=== PATIENT | male | born 1950 | race Caucasian/White ===

== ENCOUNTER 2018-03-17 12:53 | Observation (INO) | payer MEDICARE, BC ==
[2018-03-17] MEDS ORDERED: ASPIRIN 81 MG PO STA (13:26)
[2018-03-17] MEDS ORDERED: NITROGLYCERIN OINT 1 INCH/GM PACKET TOPICAL STA (13:26)
--- NOTE | 2018-03-17 13:33 | ED ---
General Adult HPI - General Chief complaint: Chest Pain Stated complaint: chest pain Time Seen by Provider: 03/17/18 13:00 Source: patient, RN notes reviewed Mode of arrival: wheelchair Limitations: no limitations - History of Present Illness Initial comments: This is a 67-year-old male who presents emergency Department complaining of lightheadedness. Patient states she was driving the car became lightheaded and started to become very diaphoretic and then had significant chest pressure. Patient stated it felt like somebody was sitting on his chest. Patient states all the symptoms lasted approximately 20 minutes. Patient states they were severe enough where he had to kidney puller and stop driving. Patient states the pain did not radiate anywhere. Patient also states he was short of breath while this was occurring. Patient states currently he is asymptomatic. Patient does have high blood pressure and high cholesterol but denies any smoking history and denies any past cardiac history. Patient denies feeling sick lately patient denies any recent fever chills or cough. Patient denies any headache patient denies any numbness weakness. Patient denied any abdominal pain. Patient denies any nausea vomiting diarrhea. - Related Data Home Medications Medication Instructions Recorded Confirmed Fenofibrate Nanocrystallized 145 mg PO DAILY 03/17/18 03/17/18 [Tricor] Latanoprost [Xalatan 0.005%] 1 drop RIGHT EYE HS 03/17/18 03/17/18 Lisinopril [Zestril] 40 mg PO DAILY 03/17/18 03/17/18 Simvastatin [Zocor] 20 mg PO HS 03/17/18 03/17/18 Allergies Allergy/AdvReac Type Severity Reaction Status Date / Time No Known Allergies Allergy Verified 03/17/18 13:48 Review of Systems ROS Statement: Those systems with pertinent positive or pertinent negative responses have been documented in the HPI. ROS Other: All systems not noted in ROS Statement are negative. Past Medical History Past Medical History: Hypertension Additional Past Medical History / Comment(s): hx angina History of Any Multi-Drug Resistant Organisms: None Reported Past Surgical History: Orthopedic Surgery Additional Past Surgical History / Comment(s): shoulder, knee Past Psychological History: No Psychological Hx Reported Smoking Status: Former smoker Past Alcohol Use History: None Reported Past Drug Use History: None Reported General Exam - General Exam Comments Initial Comments: GENERAL: Patient is well-developed and well-nourished. Patient is nontoxic and well- hydrated and is in mild distress. ENT: Neck is soft and supple. No significant lymphadenopathy is noted. Oropharynx is clear. Moist mucous membranes. Neck has full range of motion without eliciting any pain. EYES: The sclera were anicteric and conjunctiva were pink and moist. Extraocular movements were intact and pupils were equal round and reactive to light. Eyelids were unremarkable. PULMONARY: Unlabored respirations. Good breath sounds bilaterally. No audible rales rhonchi or wheezing was noted. CARDIOVASCULAR: There is a regular rate and rhythm without any murmurs gallops or rubs. ABDOMEN: Soft and nontender with normal bowel sounds. No palpable organomegaly was noted. There is no palpable pulsatile mass. SKIN: Skin is clear with no lesions or rashes and otherwise unremarkable. NEUROLOGIC: Patient is alert and oriented x3. Cranial nerves II through XII are grossly intact. Motor and sensory are also intact. Normal speech, volume and content. Symmetrical smile. MUSCULOSKELETAL: Normal extremities with adequate strength and full range of motion. No lower extremity swelling or edema. No calf tenderness. LYMPHATICS: No significant lymphadenopathy is noted PSYCHIATRIC: Normal psychiatric evaluation. Normal interpersonal interactions appears functionally intact in deals appropriately with others. No signs of depression. No signs of anxiety. Limitations: no limitations Course Vital Signs 03/17/18 03/17/18 12:58 15:17 Temperature 97.5 F L Pulse Rate 59 L 60 Respiratory 18 18 Rate Blood Pressure 113/73 110/77 O2 Sat by Pulse 99 96 Oximetry Medical Decision Making - Medical Decision Making EKG shows sinus bradycardia 58 bpm NJ interval 246 dresses 90 QT interval 448 QTC is 439. Patient's EKG shows no ST segment elevation or depression or T wave abnormalities are noted. Abdomen Patient's chest x-ray showed no acute abnormality. Patient had classic unstable angina symptoms I started the patient heparin. I spoke with Dr. Cochran he agreed to admit the patient admitted the patient wrote admitting orders. I continued heparin Nitropaste and aspirin on the floor. I consult cardiology. - Lab Data Result diagrams: 03/17/18 13:20 03/17/18 13:20 Lab Results 03/17/18 03/17/18 03/17/18 Range/Units 13:20 13:20 13:20 WBC 7.7 (3.8-10.6) k/uL RBC 5.16 (4.30-5.90) m/uL Hgb 14.8 (13.0-17.5) gm/dL Hct 44.2 (39.0-53.0) % MCV 85.6 (80.0-100.0) fL MCH 28.6 (25.0-35.0) pg MCHC 33.4 (31.0-37.0) g/dL RDW 13.3 (11.5-15.5) % Plt Count 264 (150-450) k/uL Neutrophils % 52 % Lymphocytes % 32 % Monocytes % 7 % Eosinophils % 3 % Basophils % 1 % Neutrophils # 4.0 (1.3-7.7) k/uL Lymphocytes # 2.5 (1.0-4.8) k/uL Monocytes # 0.6 (0-1.0) k/uL Eosinophils # 0.2 (0-0.7) k/uL Basophils # 0.1 (0-0.2) k/uL PT (9.0-12.0) sec INR (<1.2) APTT (22.0-30.0) sec Sodium 139 (137-145) mmol/L Potassium 4.8 (3.5-5.1) mmol/L Chloride 107 (98-107) mmol/L Carbon Dioxide 21 L (22-30) mmol/L Anion Gap 11 mmol/L BUN 22 H (9-20) mg/dL Creatinine 1.04 (0.66-1.25) mg/dL Est GFR (CKD-EPI)AfAm 85 (>60 ml/min/1.73 sqM) Est GFR (CKD-EPI)NonAf 73 (>60 ml/min/1.73 sqM) Glucose 104 H (74-99) mg/dL Calcium 9.6 (8.4-10.2) mg/dL Magnesium 2.3 (1.6-2.3) mg/dL Total Bilirubin 0.7 (0.2-1.3) mg/dL AST 38 (17-59) U/L ALT 36 (21-72) U/L Alkaline Phosphatase 39 (38-126) U/L Total Creatine Kinase 223 H (55-170) U/L CK-MB (CK-2) 3.4 H (0.0-2.4) ng/mL CK-MB (CK-2) Rel Index 1.5 Troponin I <0.012 (0.000-0.034) ng/mL Total Protein 7.2 (6.3-8.2) g/dL Albumin 4.1 (3.5-5.0) g/dL 03/17/18 Range/Units 13:20 WBC (3.8-10.6) k/uL RBC (4.30-5.90) m/uL Hgb (13.0-17.5) gm/dL Hct (39.0-53.0) % MCV (80.0-100.0) fL MCH (25.0-35.0) pg MCHC (31.0-37.0) g/dL RDW (11.5-15.5) % Plt Count (150-450) k/uL Neutrophils % % Lymphocytes % % Monocytes % % Eosinophils % % Basophils % % Neutrophils # (1.3-7.7) k/uL Lymphocytes # (1.0-4.8) k/uL Monocytes # (0-1.0) k/uL Eosinophils # (0-0.7) k/uL Basophils # (0-0.2) k/uL PT 10.7 (9.0-12.0) sec INR 1.1 (<1.2) APTT 24.9 (22.0-30.0) sec Sodium (137-145) mmol/L Potassium (3.5-5.1) mmol/L Chloride (98-107) mmol/L Carbon Dioxide (22-30) mmol/L Anion Gap mmol/L BUN (9-20) mg/dL Creatinine (0.66-1.25) mg/dL Est GFR (CKD-EPI)AfAm (>60 ml/min/1.73 sqM) Est GFR (CKD-EPI)NonAf (>60 ml/min/1.73 sqM) Glucose (74-99) mg/dL Calcium (8.4-10.2) mg/dL Magnesium (1.6-2.3) mg/dL Total Bilirubin (0.2-1.3) mg/dL AST (17-59) U/L ALT (21-72) U/L Alkaline Phosphatase (38-126) U/L Total Creatine Kinase (55-170) U/L CK-MB (CK-2) (0.0-2.4) ng/mL CK-MB (CK-2) Rel Index Troponin I (0.000-0.034) ng/mL Total Protein (6.3-8.2) g/dL Albumin (3.5-5.0) g/dL Critical Care Time Critical Care Time: Yes Total Critical Care Time: 35 Disposition Clinical Impression: Unstable angina pectoris Disposition: ADMITTED IP TO THIS HOSP Referrals: Deandre Galvez DO [Primary Care Provider] - 1-2 days Time of Disposition: 15:25
[2018-03-17 13:50] LABS: Basophils # (A) 0.1 k/uL (0-0.2); Basophils % (A) 1 %; Eosinophils # (A) 0.2 k/uL (0-0.7); Eosinophils % (A) 3 %; HCT 44.2 % (39.0-53.0); HGB 14.8 gm/dL (13.0-17.5); Lymphocytes # (A) 2.5 k/uL (1.0-4.8); Lymphocytes % (A) 32 %; MCH 28.6 pg (25.0-35.0); MCHC 33.4 g/dL (31.0-37.0); MCV 85.6 fL (80.0-100.0); Mean Platelet Volume 6.8; Monocytes # (A) 0.6 k/uL (0-1.0); Monocytes % (A) 7 %; Neutrophils % (A) 52 %; Platelet Count 264 k/uL (150-450); RBC 5.16 m/uL (4.30-5.90); RDW 13.3 % (11.5-15.5); WBC 7.7 k/uL (3.8-10.6)
[2018-03-17 13:59] LABS: Albumin 4.1 g/dL (3.5-5.0); Calcium 9.6 mg/dL (8.4-10.2); Magnesium 2.3 mg/dL (1.6-2.3); Total Bilirubin 0.7 mg/dL (0.2-1.3); Total Protein 7.2 g/dL (6.3-8.2)
--- NOTE | 2018-03-17 13:59 | XR ---
EXAMINATION TYPE: XR chest 2V DATE OF EXAM: 03/17/2018 HISTORY: Chest Pain. REFERENCE: NONE. FINDINGS: The lungs are clear. Pleural space are clear. The heart is not enlarged. IMPRESSION: NO ACTIVE INTRATHORACIC DISEASE.
[2018-03-17 14:05] LABS: INR 1.1 (<1.2); Partial Thromboplastin Time 24.9 sec (22.0-30.0); Potassium 4.8 mmol/L (3.5-5.1); Prothrombin Time 10.7 sec (9.0-12.0)
[2018-03-17 14:16] LABS: Creatine Kinase 223 U/L (55-170)
[2018-03-17 14:27] LABS: Creatine Kinase MB 3.4 ng/mL (0.0-2.4); Troponin I <0.012 ng/mL (0.000-0.034)
[2018-03-17] MEDS ORDERED: NITROGLYCERIN SL TABS 0.4 MG TAB SUBLINGUAL PRN (15:28)
[2018-03-17] MEDS ORDERED: HEPARIN SODIUM,PORCINE 5,000 UNIT/ML 1 ML VIAL IV ONE (15:29)
[2018-03-17] MEDS ORDERED: HEPARIN SOD,PORK IN 0.45% NACL 25,000 UNIT in 0.45% NACL 1 500ML.BAG IV SCH (15:30)
[2018-03-17] MEDS: NITROGLYCERIN OINT 1 INCH/GM PACKET TOPICAL SCH (18:20)
[2018-03-17 19:41] LABS: Creatine Kinase 183 U/L (55-170)
--- NOTE | 2018-03-17 19:41 | P.HPIM ---
History of Present Illness H&P Date: 03/17/18 Chief Complaint: Chest pain Mr. Estrada is a 67-year-old male with a past medical history of hyperlipidemia hypertension and glaucoma coming to the hospital with a chief complaint of substernal chest pain. Patient states while he was driving got this morning he started to have chest pain substernal in nature, radiating to his upper chest and neck associated with diaphoresis. Patient states that he felt like something heavy was sitting on top of his chest. The pain lasted for around 20 minutes that he had to rod puller and coiler and stop driving. Patient was also having mild difficulty in breathing and felt dizzy with the chest pain. Patient denies having any history of smoking or cardiac history. Patient denies having any orthopnea or PND. Patient denies having any fevers chills or rigors. No shortness of breath or cough. No abdominal pain nausea vomiting or diarrhea. No dysuria or hematuria. No loss of consciousness or seizure-like activity. No focal weakness. Patient states that he has family history of angina in his mother. He denies having any smoking history. Patient states that he exercises on a regular basis. Patient had troponins checked that were less than 0.012 and admitted for ACS rule out. Review of Systems REVIEW OF SYSTEMS: CONSTITUTIONAL: No fevers chills or rigors PSYCH: Normal psychiatric exam NEURO:No c/o weakness of the extremties, No facial droop, No speech abnormalities. VASCULAR: Peripheral nervous system within the normal limits no edema HEMATOLOGIC: No history of easy bleeding and bruising . No recent infections . RESPIRATORY: No cough, No SOB, No chest discomfort. IMMUNE: No infections INTEGUMENT: no rashes OPHTHALMOLOGIC: No blurry vision and no eye discharge : No dysuria or hematuria CARDIAC: As per HPI MUSCULOSKELETAL : No Aches or pains in the joints or muscles. GI: No abdominal pain, Nausea or vomiting. No constipation or diarrhea. Past Medical History Past Medical History: Hyperlipidemia, Hypertension Additional Past Medical History / Comment(s): hx angina History of Any Multi-Drug Resistant Organisms: None Reported Past Surgical History: Heart Catheterization, Orthopedic Surgery Additional Past Surgical History / Comment(s): left rotator cuff, knee Past Anesthesia/Blood Transfusion Reactions: No Reported Reaction Past Psychological History: No Psychological Hx Reported Smoking Status: Former smoker Past Alcohol Use History: None Reported Past Drug Use History: None Reported - Past Family History Mother Family Medical History: Congestive Heart Failure (CHF) Additional Family Medical History / Comment(s): angina, 4 uncles to pt on moms side all from heart attacks Medications and Allergies Home Medications Medication Instructions Recorded Confirmed Type Fenofibrate Nanocrystallized 145 mg PO DAILY 03/17/18 03/17/18 History [Tricor] Latanoprost [Xalatan 0.005%] 1 drop BOTH EYES HS 03/17/18 03/17/18 History Lisinopril [Zestril] 40 mg PO DAILY 03/17/18 03/17/18 History Simvastatin [Zocor] 20 mg PO HS 03/17/18 03/17/18 History Allergies Allergy/AdvReac Type Severity Reaction Status Date / Time No Known Allergies Allergy Verified 03/17/18 13:48 Physical Exam Vitals: Vital Signs Temp Pulse Pulse Resp BP BP Pulse Ox 03/17/18 16:14 97.7 F 56 L 16 118/75 95 03/17/18 15:17 60 18 110/77 96 03/17/18 12:58 97.5 F L 59 L 18 113/73 99 Intake and Output 03/17/18 03/17/18 03/17/18 06:59 14:59 22:59 Other: Weight 88.451 kg 92.3 kg GEN. APPEARANCE: alert, in no apparent distress HEAD EXAM: atraumatic, normocephalic, normal inspection EYE EXAM: normal appearance, PERRL, EOMI. Absent: scleral icterus, conjunctival injection, periorbital swelling ENT EXAM: normal exam, mucous membranes moist NECK EXAM: normal inspection. Absent: tenderness, meningismus, full ROM, lymphadenopathy RESPIRATORY EXAM: normal lung sounds bilaterally. Absent: respiratory distress , wheezes, rales, rhonchi, stridor CARDIOVASCULAR EXAM: regular rate, normal rhythm, normal heart sounds. Absent : systolic murmur, diastolic murmur, rubs, gallop, clicks GI/ABDOMINAL EXAM: soft, normal bowel sounds. Absent: distended, tenderness, guarding, rebound, rigid EXTREMITIES EXAM: normal inspection, full ROM, normal capillary refill. Absent : tenderness, pedal edema, joint swelling, calf tenderness NEUROLOGICAL EXAM: alert, oriented X3, no focal neurological deficits PSYCHIATRIC EXAM: normal affect, normal mood SKIN EXAM: warm, dry, intact, normal color. Absent: rash Results CBC & Chem 7: 03/17/18 13:20 03/17/18 13:20 Labs: Abnormal Lab Results - Last 24 Hours (Table) 03/17/18 03/17/18 Range/Units 13:20 13:20 Carbon Dioxide 21 L (22-30) mmol/L BUN 22 H (9-20) mg/dL Glucose 104 H (74-99) mg/dL Total Creatine Kinase 223 H (55-170) U/L CK-MB (CK-2) 3.4 H (0.0-2.4) ng/mL Thrombosis Risk Factor Assmnt - Choose All That Apply Any of the Below Risk Factors Present?: Yes Each Factor Represents 1 point: Obesity (BMI >25) Other Risk Factors: Yes Each Risk Factor Represents 2 Points: Age 61-74 years Thrombosis Risk Factor Assessment Total Risk Factor Score: 3 Thrombosis Risk Factor Assessment Level: Moderate Risk Assessment and Plan Assessment: ASSESSMENT Chest pain Hypertension Hyperlipidemia Glaucoma Obesity with BMI of 30 Plan: Patient is admitted for possible acute coronary syndrome. We will get serial troponins and EKGs. has been started on heparin drip that will be continued. Patient will need stress echo. Cardiology has been consulted. Further recommendations to follow depending on the progress of the patient.
[2018-03-17 19:54] LABS: Creatine Kinase MB 2.9 ng/mL (0.0-2.4)
[2018-03-17 19:56] LABS: Troponin I <0.012 ng/mL (0.000-0.034)
[2018-03-17] MEDS ORDERED: ATORVASTATIN 10 MG TAB PO SCH (21:00)
[2018-03-17] MEDS ORDERED: LATANOPROST 0.005% OPHTH DROPS 2.5 ML BTL BOTH EYES SCH (21:00)
[2018-03-17] MEDS ORDERED: ACETAMINOPHEN TAB 325 MG TAB PO PRN (23:51)
[2018-03-18] MEDS: NITROGLYCERIN OINT 1 INCH/GM PACKET TOPICAL SCH ×2 (00:07→04:59)
[2018-03-18 01:48] LABS: Creatine Kinase 163 U/L (55-170)
[2018-03-18 02:02] LABS: Creatine Kinase MB 2.7 ng/mL (0.0-2.4); Troponin I <0.012 ng/mL (0.000-0.034)
[2018-03-18 02:36] LABS: Cholesterol 134 mg/dL (<200); HDL Cholesterol 51 mg/dL (40-60); LDL Cholesterol,Calculated 65 mg/dL (0-99); Triglycerides 90 mg/dL (<150)
[2018-03-18] MEDS ORDERED: SODIUM CHLORIDE 0.9% 1,000 ML IV SCH (08:15)
--- NOTE | 2018-03-18 08:36 | P.CRDCN ---
<Charles Rojas - Last Filed: 03/18/18 08:35> History of Present Illness History of present illness: Patient interviewed and examined. Episode of dizziness while sitting in the car and was subsequently started experiencing chest discomfort. He's had a similar episode many years back.. Often gets dizzy and lightheaded. He did feel some pounding in the chest. Examination is normal blood pressure is 119/75 mmHg and 87/55 mmHg. Twelve- lead ECG is normal cardiac enzymes are normal History of hypertension and dyslipidemia Plan Tilt table test Exercise stress echo today Evaluation thereafter Past Medical History Past Medical History: Hyperlipidemia, Hypertension Additional Past Medical History / Comment(s): hx angina History of Any Multi-Drug Resistant Organisms: None Reported Past Surgical History: Heart Catheterization, Orthopedic Surgery Additional Past Surgical History / Comment(s): left rotator cuff, knee Past Anesthesia/Blood Transfusion Reactions: No Reported Reaction Past Psychological History: No Psychological Hx Reported Smoking Status: Former smoker Past Alcohol Use History: None Reported Past Drug Use History: None Reported - Past Family History Mother Family Medical History: Congestive Heart Failure (CHF) Additional Family Medical History / Comment(s): angina, 4 uncles to pt on moms side all from heart attacks Medications and Allergies Home Medications Medication Instructions Recorded Confirmed Type Fenofibrate Nanocrystallized 145 mg PO DAILY 03/17/18 03/17/18 History [Tricor] Latanoprost [Xalatan 0.005%] 1 drop BOTH EYES HS 03/17/18 03/17/18 History Lisinopril [Zestril] 40 mg PO DAILY 03/17/18 03/17/18 History Simvastatin [Zocor] 20 mg PO HS 03/17/18 03/17/18 History Allergies Allergy/AdvReac Type Severity Reaction Status Date / Time No Known Allergies Allergy Verified 03/17/18 13:48 Physical Exam Vitals: Vital Signs Temp Pulse Pulse Resp BP BP BP 03/18/18 07:55 63 16 03/18/18 07:15 98.4 F 59 L 18 87/55 03/18/18 04:00 98.2 F 64 16 119/75 03/18/18 00:00 16 03/17/18 23:47 98.7 F 70 16 90/48 03/17/18 20:00 18 03/17/18 19:53 98.9 F 61 18 125/57 03/17/18 16:14 97.7 F 56 L 16 118/75 03/17/18 15:17 60 18 110/77 03/17/18 12:58 97.5 F L 59 L 18 113/73 Pulse Ox 03/18/18 07:55 03/18/18 07:15 96 03/18/18 04:00 96 03/18/18 00:00 03/17/18 23:47 94 L 03/17/18 20:00 03/17/18 19:53 95 03/17/18 16:14 95 03/17/18 15:17 96 03/17/18 12:58 99 Intake and Output 03/17/18 03/18/18 03/18/18 22:59 06:59 14:59 Intake Total 136.863 199.39 Balance 136.863 199.39 Intake: Intake, IV Titration 136.863 199.39 Amount Heparin Sod,Pork in 0.45% 136.863 199.39 NaCl 25,000 unit In 0.45 % NaCl 1 500ml.bag @ 11.3 UNITS/KG/HR 19.98 mls/hr IV .Q24H [facility] Rx#: [id number] Other: # Voids 2 3 Weight 92.3 kg Results 03/17/18 13:20 03/17/18 13:20 Cardiac Enzymes 03/17/18 03/17/18 03/17/18 Range/Units 13:20 13:20 18:54 AST 38 (17-59) U/L CK-MB (CK-2) 3.4 H 2.9 H (0.0-2.4) ng/mL Troponin I <0.012 <0.012 (0.000-0.034) ng/mL 03/18/18 Range/Units 01:07 AST (17-59) U/L CK-MB (CK-2) 2.7 H (0.0-2.4) ng/mL Troponin I <0.012 (0.000-0.034) ng/mL Coagulation 03/17/18 03/17/18 03/18/18 Range/Units 13:20 22:15 05:07 PT 10.7 (9.0-12.0) sec APTT 24.9 38.5 H 45.7 H (22.0-30.0) sec Lipids 03/17/18 Range/Units 13:20 Triglycerides 90 (<150) mg/dL Cholesterol 134 (<200) mg/dL HDL Cholesterol 51 (40-60) mg/dL CBC 03/17/18 Range/Units 13:20 WBC 7.7 (3.8-10.6) k/uL RBC 5.16 (4.30-5.90) m/uL Hgb 14.8 (13.0-17.5) gm/dL Hct 44.2 (39.0-53.0) % Plt Count 264 (150-450) k/uL Comprehensive Metabolic Panel 03/17/18 Range/Units 13:20 Sodium 139 (137-145) mmol/L Potassium 4.8 (3.5-5.1) mmol/L Chloride 107 (98-107) mmol/L Carbon Dioxide 21 L (22-30) mmol/L BUN 22 H (9-20) mg/dL Creatinine 1.04 (0.66-1.25) mg/dL Glucose 104 H (74-99) mg/dL Calcium 9.6 (8.4-10.2) mg/dL AST 38 (17-59) U/L ALT 36 (21-72) U/L Alkaline Phosphatase 39 (38-126) U/L Total Protein 7.2 (6.3-8.2) g/dL Albumin 4.1 (3.5-5.0) g/dL Current Medications Generic Name Dose Route Start Last Admin Trade Name Freq PRN Reason Stop Dose Admin Acetaminophen 650 mg 03/17/18 23:51 Tylenol Tab PO Q4HR PRN Fever and/ or Pain Aspirin 325 mg 03/18/18 09:00 Aspirin PO DAILY [facility] Atorvastatin Calcium 10 mg 03/17/18 21:00 03/17/18 20:02 Lipitor PO 10 mg HS [facility] Administration Fenofibrate 160 mg 03/18/18 09:00 Lofibra PO DAILY [facility] Sodium Chloride 1,000 mls @ 20 mls/hr 03/18/18 08:15 Saline 0.9% IV .Q24H [facility] Latanoprost 1 drops 03/17/18 21:00 03/17/18 21:12 Xalatan 0.005% BOTH EYES 1 drops HS [facility] Administration Lisinopril 40 mg 03/18/18 09:00 Zestril PO DAILY [facility] Nitroglycerin 0.4 mg 03/17/18 15:28 Nitrostat SUBLINGUAL Q5M PRN Chest Pain Intake and Output 03/17/18 03/18/18 03/18/18 22:59 06:59 14:59 Intake Total 136.863 199.39 Balance 136.863 199.39 Intake: Intake, IV Titration 136.863 199.39 Amount Heparin Sod,Pork in 0.45% 136.863 199.39 NaCl 25,000 unit In 0.45 % NaCl 1 500ml.bag @ 11.3 UNITS/KG/HR 19.98 mls/hr IV .Q24H [facility] Rx#: [id number] Other: # Voids 2 3 Weight 92.3 kg 03/17/18 13:20 03/17/18 13:20 <Ariana Diaz - Last Filed: 03/18/18 10:46> History of Present Illness History of present illness: This is a pleasant 67-year-old male past medical history significant for hypertension and dyslipidemia. He denies history of coronary artery disease or diabetes mellitus. He has never followed with follow up manager for any reason. We've been asked to see him in consultation for chest pain. He states he was in the car with his is he is found to look up driving directions and he started feeling lightheaded. He states he's never experienced that in the past with using his cell phone. The symptoms of lightheadedness persisted for approximately 20 minutes. He then started feeling of pressure in the left precordial region. He felt mildly short of breath, ongoing lightheadedness, nausea and mild diaphoresis. He denies radiation to the arm, back, neck or jaw. The chest pressure persisted for another 20 minutes or so and then subsided ultimately on its own. He has had no further symptoms of chest discomfort since coming to the hospital. At the time of my exam he is seen resting comfortably in bed in no acute distress. Telemetry tracings have been unremarkable. Blood pressure on arrival 113/73 110/77. Duration of his hospital stay his blood pressures have been less than 120 systolic on no oral antihypertensive medication. EKG reveals sinus bradycardia heart rate [address] or T-wave abnormalities noted. Chest x-ray is negative for an acute cardiopulmonary process. Laboratory data reviewed, cardiac enzymes negative 3, hemoglobin 14.8, platelets 264, sodium 139, potassium 4.8, creatinine 1.04, magnesium 2.3, LDL 65 and HDL 51. Current cardiac medications include lisinopril 40 mg daily, simvastatin 20 mg daily and fenofibrate 145 mg daily. At the time of my exam: CONSTITUTIONAL: Denies fever. Denies chills. EYES: Denies blurred vision. Denies vision changes. Denies eye pain. EARS, NOSE, MOUTH & THROAT: Denies headache. Denies sore throat. Denies ear pain. CARDIOVASCULAR: Denies chest pain. Denies shortness of breath. Denies orthopnea. Denies PND. Denies palpitations. RESPIRATORY: Denies cough. GASTROINTESTINAL: Denies abdominal pain. Denies diarrhea. Denies constipation. Denies nausea. Denies vomiting. MUSCULOSKELETAL: Denies myalgias. INTEGUMENTARY: Denies pruitis. Denies rash. NEUROLOGIC: Denies numbness. Denies tingling. Denies weakness. PSYCHIATRIC: Denies anxiety. Denies depression. ENDOCRINE: Denies fatigue. Denies weight change. Denies polydipsia. Denies polyurina. GENITOURINARY: Denies burning, hematuria or urgency with micturation. HEMATOLOGIC: Denies history of anemia. Denies bleeding. Blood pressure 119/75 heart rate 64 afebrile maintaining oxygen saturation on room air GENERAL: This is a 67-year-old male in no apparent distress at the time of my examination. HEENT: Head is atraumatic, normocephalic. Pupils are equal, round. Sclerae anicteric. Conjunctivae are clear. Mucous membranes of the mouth are moist. Neck is supple. There is no jugular venous distention. No carotid bruit is heard. LUNGS: Clear to auscultation no wheezes, rales or rhonchi. No chest wall tenderness is noted on palpation or with deep breathing. HEART: Regular rate and rhythm without murmurs, rubs or gallops. S1 and S2 heard. ABDOMEN: Soft, nontender. Bowel sounds are heard. No organomegaly noted. EXTREMITIES: No evidence of peripheral edema and no calf tenderness noted. VASCULAR: Radial and dorsalis pedis pulses palpated, no evidence of clubbing. NEUROLOGIC: Patient is awake, alert and oriented x3. ASSESSMENT Chest pain, atypical. An acute coronary event is ruled out with no EKG evidence of ischemia and negative cardiac enzymes. Possible vasovagal reaction Hypertension Dyslipidemia PLAN An acute coronary event has been ruled out. Discontinue heparin infusion and Nitropaste. Obtain 2-D echocardiogram and Doppler study to assess cardiac structure and function. Hold Lisinopril. Performed tilt table test. Perform stress echocardiogram to assess her stress induced cardiac ischemia. Further recommendations to follow. Thank you kindly for this consultation. Nurse Practitioner note has been reviewed, I agree with a documented findings and plan of care. Patient was seen and examined. Physical Exam Vitals: Vital Signs Temp Pulse Pulse Resp BP BP BP 03/18/18 07:55 63 16 03/18/18 07:15 98.4 F 59 L 18 87/55 03/18/18 04:00 98.2 F 64 16 119/75 03/18/18 00:00 16 03/17/18 23:47 98.7 F 70 16 90/48 03/17/18 20:00 18 03/17/18 19:53 98.9 F 61 18 125/57 03/17/18 16:14 97.7 F 56 L 16 118/75 03/17/18 15:17 60 18 110/77 03/17/18 12:58 97.5 F L 59 L 18 113/73 Pulse Ox 03/18/18 07:55 03/18/18 07:15 96 03/18/18 04:00 96 03/18/18 00:00 03/17/18 23:47 94 L 03/17/18 20:00 03/17/18 19:53 95 03/17/18 16:14 95 03/17/18 15:17 96 03/17/18 12:58 99 Intake and Output 03/17/18 03/18/18 03/18/18 22:59 06:59 14:59 Intake Total 136.863 199.39 Balance 136.863 199.39 Intake: Intake, IV Titration 136.863 199.39 Amount Heparin Sod,Pork in 0.45% 136.863 199.39 NaCl 25,000 unit In 0.45 % NaCl 1 500ml.bag @ 11.3 UNITS/KG/HR 19.98 mls/hr IV .Q24H [facility] Rx#: [id number] Other: # Voids 2 3 Weight 92.3 kg Results 03/17/18 13:20 03/17/18 13:20 Cardiac Enzymes 03/17/18 03/17/18 03/17/18 Range/Units 13:20 13:20 18:54 AST 38 (17-59) U/L CK-MB (CK-2) 3.4 H 2.9 H (0.0-2.4) ng/mL Troponin I <0.012 <0.012 (0.000-0.034) ng/mL 03/18/18 Range/Units 01:07 AST (17-59) U/L CK-MB (CK-2) 2.7 H (0.0-2.4) ng/mL Troponin I <0.012 (0.000-0.034) ng/mL Coagulation 03/17/18 03/17/18 03/18/18 Range/Units 13:20 22:15 05:07 PT 10.7 (9.0-12.0) sec APTT 24.9 38.5 H 45.7 H (22.0-30.0) sec Lipids 03/17/18 Range/Units 13:20 Triglycerides 90 (<150) mg/dL Cholesterol 134 (<200) mg/dL HDL Cholesterol 51 (40-60) mg/dL CBC 03/17/18 Range/Units 13:20 WBC 7.7 (3.8-10.6) k/uL RBC 5.16 (4.30-5.90) m/uL Hgb 14.8 (13.0-17.5) gm/dL Hct 44.2 (39.0-53.0) % Plt Count 264 (150-450) k/uL Comprehensive Metabolic Panel 03/17/18 Range/Units 13:20 Sodium 139 (137-145) mmol/L Potassium 4.8 (3.5-5.1) mmol/L Chloride 107 (98-107) mmol/L Carbon Dioxide 21 L (22-30) mmol/L BUN 22 H (9-20) mg/dL Creatinine 1.04 (0.66-1.25) mg/dL Glucose 104 H (74-99) mg/dL Calcium 9.6 (8.4-10.2) mg/dL AST 38 (17-59) U/L ALT 36 (21-72) U/L Alkaline Phosphatase 39 (38-126) U/L Total Protein 7.2 (6.3-8.2) g/dL Albumin 4.1 (3.5-5.0) g/dL Current Medications Generic Name Dose Route Start Last Admin Trade Name Freq PRN Reason Stop Dose Admin Acetaminophen 650 mg 03/17/18 23:51 Tylenol Tab PO Q4HR PRN Fever and/ or Pain Aspirin 325 mg 03/18/18 09:00 Aspirin PO DAILY [facility] Atorvastatin Calcium 10 mg 03/17/18 21:00 03/17/18 20:02 Lipitor PO 10 mg HS [facility] Administration Fenofibrate 160 mg 03/18/18 09:00 Lofibra PO DAILY [facility] Sodium Chloride 1,000 mls @ 20 mls/hr 03/18/18 08:15 Saline 0.9% IV .Q24H [facility] Latanoprost 1 drops 03/17/18 21:00 03/17/18 21:12 Xalatan 0.005% BOTH EYES 1 drops HS [facility] Administration Lisinopril 40 mg 03/18/18 09:00 Zestril PO DAILY [facility] Nitroglycerin 0.4 mg 03/17/18 15:28 Nitrostat SUBLINGUAL Q5M PRN Chest Pain Intake and Output 03/17/18 03/18/18 03/18/18 22:59 06:59 14:59 Intake Total 136.863 199.39 Balance 136.863 199.39 Intake: Intake, IV Titration 136.863 199.39 Amount Heparin Sod,Pork in 0.45% 136.863 199.39 NaCl 25,000 unit In 0.45 % NaCl 1 500ml.bag @ 11.3 UNITS/KG/HR 19.98 mls/hr IV .Q24H [facility] Rx#: [id number] Other: # Voids 2 3 Weight 92.3 kg 03/17/18 13:20 03/17/18 13:20
[2018-03-18] MEDS ORDERED: FENOFIBRATE 160 MG TAB PO SCH ×2 (09:00)
[2018-03-18] MEDS ORDERED: ASPIRIN 325 MG TAB PO SCH (09:00)
[2018-03-18] MEDS ORDERED: LISINOPRIL 20 MG TAB PO SCH (09:00)
[2018-03-18] MEDS ORDERED: IV FLUID CONTINUATION 1,000 ML IV ONE (09:34)
--- NOTE | 2018-03-18 11:40 | P.PCN ---
Preoperative Diagnosis: Symptoms Recurrent dizzy spells history of dizzy spells while sitting in a car Prior history of dizzy spells with chest pain Twelve-lead ECG Sinus rhythm normal cardio intervals, normal QT interval no delta waves no epsilon waves narrow QRS leftward axis Tilt table test per protocol Baseline blood pressure 134/79 mmHg Baseline heart rate 66 beats a minute Patient was tilted upright at night left 70 per protocol there was no significant change in his heart rate or blood pressure he remained asymptomatic through the procedure Impression Normal heart rate and blood pressure response to upright tilting Normal twelve-lead ECG Proceed with stress testing
[2018-03-18 11:53] VITALS: RESP 18
--- NOTE | 2018-03-18 14:07 | P.STRESS ---
- Stress Test Note Stress Test Results/Findings: Exam Performed: stress echo exercise Exam Date: 03/18/18 Reason for Exam: CHEST PAIN Height: 5 ft 9 in Weight: 92.3 kg Protocol: WALI Stage: 4 Duration of Exercise: 9:30 Resting Heart Rate: 69 Resting Blood Pressure: 131/87 Maximum Achieved Heart Rate: 134 Maximum Achieved Blood Pressure: 219/81 85% PMHR: 128 100% PMHR: 151 METS: 11.1 Technologist Comment: Stress Test Results/Findings: Baseline heart rate 69 beats a minute, Baseline blood pressure 131/87 mmHg Baseline 12-lead ECG shows normal sinus rhythm normal chronic intervals Patient exercised on a Wali protocol for 9 minutes 30 seconds achieving a peak heart rate of 134 beats a minute. Mildly hypertensive response to exercise peak blood pressure 219/81 mmHg There was no ECG evidence for ischemia Occasional PVCs noted The baseline 2-D echo images showed normal LV size and systolic function without segmental wall motion abnormalities At peak exercise there was excellent augmentation of overall LV contractility without development of any wall motion amenities. At recovery regional global LV systolic function remained normal Impression Normal stress echo with good exercise capacity and a Wali protocol Occasional PVCs
--- NOTE | 2018-03-18 14:57 | P.DS ---
Providers Date of admission: 03/17/18 15:34 Expected date of discharge: 03/18/18 Attending physician: Beverly Torres Consults: 03/17/18 15:28 Consult Physician Urgent Consulting Provider: [facility] Consult Reason/Comments: Unstable angina Do you want consulting provider notified?: Yes Primary care physician: Deandre Sunshine [facility] Course: Mr. Estrada is a 67-year-old male with a past medical history of hyperlipidemia hypertension and glaucoma coming to the hospital with a chief complaint of substernal chest pain. Patient states while he was driving got this morning he started to have chest pain substernal in nature, radiating to his upper chest and neck associated with diaphoresis. Patient states that he felt like something heavy was sitting on top of his chest. The pain lasted for around 20 minutes that he had to trap puller and stop driving. Patient was also having mild difficulty in breathing and felt dizzy with the chest pain. Patient denies having any history of smoking or cardiac history. Patient denies having any orthopnea or PND. Patient denies having any fevers chills or rigors. No shortness of breath or cough. No abdominal pain nausea vomiting or diarrhea. No dysuria or hematuria. No loss of consciousness or seizure-like activity. No focal weakness. Patient states that he has family history of angina in his mother. He denies having any smoking history. Patient states that he exercises on a regular basis. Patient had troponins checked that were less than 0.012 and admitted for ACS rule out. During the hospital course cardiology services have been consulted. Patient had a tilt table test that was within normal limits and also a cardiac stress echo done within normal limits. Patient is symptom-free now and has been cleared by cardiology to be discharged home in a stable condition. No new medications have been added. Patient's vitals and physical exam within normal limits at the time of discharge. No new medications have been added. Patient takes a baby aspirin 81 mg at home which he is advised to continue with. DISCHARGE DIAGNOSIS Chest pain Hypertension Hyperlipidemia Glaucoma Obesity with BMI of 30 Agent is advised to follow-up with his PCP in 2-3 days. Patient Condition at Discharge: Stable Plan - Discharge Summary Discharge Rx Participant: No New Discharge Prescriptions: Continue Simvastatin [Zocor] 20 mg PO HS Latanoprost [Xalatan 0.005%] 1 drop BOTH EYES HS Lisinopril [Zestril] 40 mg PO DAILY Fenofibrate Nanocrystallized [Tricor] 145 mg PO DAILY Discharge Medication List Fenofibrate Nanocrystallized [Tricor] 145 mg PO DAILY 03/17/18 [History] Latanoprost [Xalatan 0.005%] 1 drop BOTH EYES HS 03/17/18 [History] Lisinopril [Zestril] 40 mg PO DAILY 03/17/18 [History] Simvastatin [Zocor] 20 mg PO HS 03/17/18 [History] Follow up Appointment(s)/Referral(s): Charles Rojas MD [STAFF PHYSICIAN] - 4 Weeks Deandre Galvez DO [Primary Care Provider] - 1-2 days Discharge Disposition: HOME SELF-CARE
[2018-03-18 15:13] VITALS: BP 118/67; PULSE 63; TEMP 98
== END 2018-03-18 15:51 | disposition home or self-care (01) ==
LOC: EC 12:53 → UNDOADMOB 15:34 → 1SOBS 15:34
PROVIDERS: ADMIT Internal Medicine; ATTEND Internal Medicine
DX: R07.2 Precordial pain (principal); R07.89 Other chest pain; R61 Generalized hyperhidrosis; R42 Dizziness and giddiness; R06.02 Shortness of breath; R11.0 Nausea; E78.5 Hyperlipidemia, unspecified; I10 Essential (primary) hypertension; H40.9 Unspecified glaucoma; Z82.49 Family history of ischemic heart disease and other diseases of the circulatory system; E66.9 Obesity, unspecified; Z68.30 Body mass index [BMI] 30.0-30.9, adult; Z87.891 Personal history of nicotine dependence; Z79.899 Other long term (current) drug therapy
CPT/HCPCS: 99291 ×2; 96376 ×2; 96365 ×2; 96366 ×2; 36415; 93005; 93351; 93660; 80061; 80053; 82550 ×2; 82553 ×2; 83735; 84484 ×2; 85025; 85610; 85730 ×2; 71046; G0378 ×2; J1644; 93306

== ENCOUNTER 2023-08-27 19:24 | Outpatient (CLI) | payer MEDICARE, BC ==
--- NOTE | 2023-08-28 22:20 | P.PCN ---
Date of Procedure: 08/27/23 Operative Findings: Polysomnography report Date of service is 08/27/2023 Pertinent history 72-year-old male patient with reported history of chronic loud snoring, witnessed apneas as reported by the . The patient is a Mallampati class IV. His body mass index is 33.1. There is an increase suspicion for obstructive sleep apnea. Based on that the screening polysomnography was ordered. The patient's comorbid conditions include coronary artery disease, hypertension, hyperlipidemia, diabetes mellitus type 2 and diabetic neuropathy. Pertinent physical findings The patient has a height of 5 feet and 8 inches, weight is 218 pounds and a body mass index of 33.1 Technical description The patient was studied using a standard complex polysomnography protocol that included recording of the 2 EKG, Central, occipital and frontal EEG, right and left outer canthus EOG, submental EMG, right and left anterior tibialis EMG, respiratory airflow by thermocouple and or pressure/flow transducer, respiratory efforts by abdominal and thoracic PVDF belts, oxygen saturation by cable oximetry. Position by observation synchronized the PSG. Equipment used: [employer]. Sleep architecture The total recording duration was 433.0 minutes. The total sleep time was 405.5 minutes. The overall sleep efficiency was 93.6%. The latency to sleep onset was 4.5 minutes. The latest REM sleep was 23.0 minutes. The sleep architecture was characterized by 7.6% stage I, 78.4% stage II, 1.1% stage III, 12.8% REM sleep The wake after sleep onset time was 18 minutes. The total arousal index was 10.9. Respiratory analysis This sleep study showed a total of 105 obstructive events of which 0 obstructive apneas, 0 were mixed apneas, and there was a total of 105 obstructive hypopneas and the resulting AHI was 15.4. The patient had worse apnea during REM sleep with an AHI of 25.4 during REM. Oxygenation analysis The patient's baseline pulse ox while awake was 94%. The patient spent approximately 5 hours and 37 minutes of the sleep time below pulse ox of 89%. The minimum pulse ox during REM sleep was 77%. Sleep continuity summary There was a total of 74 arousals with an index of 10.9 and the respiratory arousal index was 4.0 Periodic limb movement summary There was a total of 296 periodic limb movement activity with an index of 43.8. There was a total of 3. Decline with activity with arousals with an index of 0.4 Cardiac summary The average heart rate was 56 with a minimum heart rate of 52 and a maximum heart rate of 62 Assessment Mild obstructive sleep apnea with an AHI of 15, worse during REM sleep Nocturnal oxygen desaturation secondary to obstructive sleep apnea with a mini mum pulse ox of 77% reported during REM sleep Loud snoring Obesity with a BMI of 33.1 Coronary artery disease Hypertension Hyperlipidemia Diabetes mellitus type 2 with history of diabetic neuropathy Chronic hypersomnia with an [place] score of 12 Excessive periodic limb movement activity, not associated with arousals, could be related to diabetic neuropathy. Plan Based on disease severity and presence of significant nocturnal oxygen saturation and various other comorbidities, I am recommending CPAP therapy for this patient. The patient will be asked to come back to the sleep center to undergo CPAP titration. Anticipate improvement in sleep quality with utilization of CPAP. Meanwhile, the patient is to concentrate on losing weight and optimizing sleep hygiene measures and maintaining a regular sleep schedule. Noted the patient has a baseline Woodsfield score of 12.
== END 2023-08-28 05:50 | disposition home or self-care (01) ==
LOC: 3 N SLEEP 19:24
PROVIDERS: ATTEND Internal Medicine Critical Care Medicine
DX: G47.33 Obstructive sleep apnea (adult) (pediatric) (principal); G47.10 Hypersomnia, unspecified; G47.61 Periodic limb movement disorder; R06.83 Snoring; E66.9 Obesity, unspecified; I25.10 Atherosclerotic heart disease of native coronary artery without angina pectoris; I10 Essential (primary) hypertension; E78.5 Hyperlipidemia, unspecified; E11.40 Type 2 diabetes mellitus with diabetic neuropathy, unspecified; Z79.899 Other long term (current) drug therapy; Z87.891 Personal history of nicotine dependence; Z68.33 Body mass index [BMI] 33.0-33.9, adult
CPT/HCPCS: 95810

== ENCOUNTER 2023-09-04 19:38 | Outpatient (CLI) | payer MEDICARE, BC ==
--- NOTE | 2023-09-16 18:01 | P.PCN ---
Date of Procedure: 09/04/23 Operative Findings: CPAP titration report Date of services 09/04/2023 Pertinent history 72-year-old male patient diagnosed having mild NADIR with an AHI of 15 worse during REM sleep. The patient has a large number of comorbidities. The patient also has chronic hypersomnia with an [place] score of 12. He is coming in for a CPAP titration. Technical description The patient was studied using a standard complex polysomnography protocol that included recording of the 2 EKG, Central, occipital and frontal EEG, right and left outer canthus EOG, submental EMG, right and left anterior tibialis EMG, respiratory airflow by thermocouple and or pressure/flow transducer, respiratory efforts by abdominal and thoracic PVDF belts, oxygen saturation by cable oximetry. Position by observation synchronized the PSG. Stepwise CPAP titration was done to eliminate obstructive respiratory events. Equipment used: [employer]. Sleep architecture The total recording duration was 397 minutes. The total sleep time was 32 8.5 minutes. The sleep efficiency was calculated to be at 82.7%. The latency to REM sleep was 129 minutes. The latency to sleep was 18 minutes. The sleep architecture was catheterized by 4% stage I, 64.8% stage II, 1.1% stage III, 30.1% REM sleep. The wake after sleep onset time was 43.5 minutes. The total arousal index was 2.7 Respiratory analysis The patient was started on CPAP therapy, initially at a pressure of 4 cm of water and pressure was gradually increased by increments of 1 cm to reach a maximum CPAP pressure of 12 cm of water. Careful review of CPAP titration was done taking account the patient's sleep stage and body position. Noted the patient was studied in various body position. The patient was essentially in nonsupine body position. All sleep stages were encountered. This was successful titration. Noted that the pressure of 10 cm of water, the patient had adequate control of the obstructive respiratory events. The patient did encounter some obstructive hypopneas and subsequently the patient was brought up to a CPAP pressure of 12 cm of water. As such, the patient will be treated with a CPAP pressure of 12 cm of water which was effective in eliminating obstructive respiratory events and eliminating nocturnal oxygen desaturations Sleep continuity summary The patient had a total of 15 arousals with an arousal index of 2.7. Respiratory arousal index was 0 Periodic limb movements There was a total of 89 periodic limb movement activity with an index of 16.3. There were 3 periodic limb movement with arousals with an index of 0.5 Cardiac summary The average heart rate was 58 with a minimum heart rate of 53 and a maximum heart rate of 64. Assessment Obstructive sleep apnea, mild in severity at baseline with an AHI of 15 worse during REM sleep. The patient underwent successful CPAP titration Chronic hypersomnia sleepiness with an upper score of 12 Excessive periodic limb movement, could be related to diabetic neuropathy, not causing any arousals Diabetes mellitus type 2 Diabetic neuropathy Hypertension Hyperlipidemia Coronary artery disease Loud snoring Body mass index of 33.1 Plan Initiate CPAP therapy pressure of 12 cm of water with a C-Flex of 3. The patient is going to be provided today medium size AirFit F20 fullface mask. The patient will be seeing me back in 30 to 90 days to assess clinical response and compliancy. Will continue to follow.
== END 2023-09-05 05:45 | disposition home or self-care (01) ==
LOC: 3 N SLEEP 19:38
PROVIDERS: ATTEND Internal Medicine Critical Care Medicine
DX: G47.33 Obstructive sleep apnea (adult) (pediatric) (principal); G47.10 Hypersomnia, unspecified; G47.61 Periodic limb movement disorder; E11.40 Type 2 diabetes mellitus with diabetic neuropathy, unspecified; I10 Essential (primary) hypertension; E78.5 Hyperlipidemia, unspecified; I25.10 Atherosclerotic heart disease of native coronary artery without angina pectoris; G47.52 REM sleep behavior disorder; Z79.899 Other long term (current) drug therapy; Z87.891 Personal history of nicotine dependence
CPT/HCPCS: 95811